=== PATIENT | male | born 1980 | race Hispanic/Latino ===

== ENCOUNTER 2017-01-27 19:44 | Emergency (ER) | payer MEDICAID, OTHER ==
[2017-01-27 20:02] VITALS: O2SAT 99
[2017-01-27] MEDS ORDERED: Sodium Chloride 0.9% 2,000 ML IV STA (20:15)
[2017-01-27 20:31] LABS: VENOUS BLOOD GAS BASE EXCESS 3.8 mmol/L (0.0-2.0); VENOUS BLOOD GAS PCO2 46 mmHg (40-60); VENOUS BLOOD PH 7.41 (7.32-7.43)
[2017-01-27 20:31] LABS: BASO # 0.1 K/uL (0.0-0.2); BASO % 0.8 % (0.0-2.0); EOS % 0.5 % (0.0-4.0); HEMATOCRIT 40.8 % (35.0-51.0); LYMPH # 1.8 K/uL (1.0-4.3); LYMPH % 19.1 % (20.0-40.0); MEAN CELL VOLUME 84.5 fl (80.0-94.0); MEAN CORPUSCULAR HEMOGLOBIN 27.5 pg (27.0-31.0); MEAN CORPUSCULAR HGB CONC 32.5 g/dL (33.0-37.0); MEAN PLATELET VOLUME 9.8 fl (7.2-11.7); MONO # 0.8 K/uL (0.0-0.8); NEUT # 6.9 K/uL (1.8-7.0); NEUT % 71.6 % (50.0-75.0); NRBC % 0.1 % (0.0-0.0); RED CELL DISTRIBUTION WIDTH 12.7 % (11.5-14.5); WHITE BLOOD COUNT 9.6 K/uL (4.8-10.8)
[2017-01-27 20:42] LABS: ALB/GLOB RATIO 1.4 (1.0-2.1); ALKALINE PHOSPHATASE 127 U/L (38-126); ALT/SGPT 39 U/L (21-72); AST/SGOT 24 U/L (17-59); BILIRUBIN,TOTAL 0.6 mg/dl (0.2-1.3); BLOOD UREA NITROGEN 20 mg/dl (9-20); CALCIUM 9.4 mg/dL (8.4-10.2); CARBON DIOXIDE 24 mmol/L (22-30); CHLORIDE 92 mmol/L (98-107); GFR AFRICAN-AMERICAN > 60; POTASSIUM 4.4 MMOL/L (3.6-5.0); SODIUM 131 mmol/l (132-148); TOTAL PROTEIN 7.6 G/DL (6.3-8.2)
--- NOTE | 2017-01-27 20:49 | ED PDOC ---
Lower Extremity Pain/Injury Time Seen by Provider: 01/27/17 20:06 Chief Complaint (Nursing): Lower Extremity Problem/Injury Chief Complaint (Provider): Left toe pain History Per: Patient History/Exam Limitations: no limitations Current Symptoms Are (Timing): Still Present Additional Complaint(s): Patient is a 37 year old male with a past medical history of diabetes presenting to the emergency department for swelling and pain in his left great toe. Patient was recently released from [place] [facility] where the onset of symptoms occurred, reporting that pus drained from the toe with accompanying swelling and pain. Denies fever, chills, chest pain, shortness of breath, abdominal pain , and also denies ever taking medication for diabetes. PCP: none provided. Past Medical History Reviewed: Historical Data, Nursing Documentation, Vital Signs Vital Signs: Last Vital Signs Temp 98 F 01/27/17 19:56 Pulse 106 H 01/27/17 19:56 Resp 18 01/27/17 19:56 BP 137/84 01/27/17 19:56 Pulse Ox 99 01/27/17 19:56 - Medical History PMH: Diabetes - Surgical History Surgical History: No Surg Hx - Family History Family History: States: Unknown Family Hx - Social History Current smoker - smoking cessation education provided: Yes Ex-Smoker (has not smoked in the last 12 months): No - Home Medications Home Medications: Ambulatory Orders Medication Instructions Recorded Naproxen [Naprosyn] 500 mg PO Q8 #30 tablet 01/28/17 metFORMIN [glucOPHAGE] 500 mg PO DAILY #30 tab 01/28/17 - Allergies Allergies/Adverse Reactions: Allergies Allergy/AdvReac Type Severity Reaction Status Date / Time No Known Allergies Allergy Verified 01/27/17 20:03 Review of Systems ROS Statement: Except As Marked, All Systems Reviewed And Found Negative Constitutional: Negative for: Fever, Chills Cardiovascular: Negative for: Chest Pain Respiratory: Negative for: Shortness of Breath Gastrointestinal: Negative for: Abdominal Pain Musculoskeletal: Positive for: Foot Pain (Left toe pain and swelling) Physical Exam - Reviewed Nursing Documentation Reviewed: Yes Vital Signs Reviewed: Yes - Physical Exam Appears: Positive for: Well, Non-toxic, No Acute Distress Head Exam: Positive for: ATRAUMATIC, NORMAL INSPECTION, NORMOCEPHALIC Skin: Positive for: Normal Color, Warm, Dry ENT: Positive for: Normal ENT Inspection Neck: Positive for: Normal, Painless ROM, Supple Cardiovascular/Chest: Positive for: Regular Rate, Rhythm. Negative for: Murmur Respiratory: Positive for: Normal Breath Sounds. Negative for: Accessory Muscle Use, Respiratory Distress Gastrointestinal/Abdominal: Positive for: Normal Exam, Soft. Negative for: Tenderness Extremity: Positive for: Normal ROM, Swelling (Left hallux swollen and erythematous with no breakdown or ulceration.). Negative for: Pedal Edema Neurologic/Psych: Positive for: Alert, Oriented - Laboratory Results Result Diagrams: 01/27/17 20:21 01/27/17 20:21 - ECG O2 Sat by Pulse Oximetry: 99 (RA) Pulse Ox Interpretation: Normal - Other Rad XR FOOT LEFT X-Ray: Interpreted by Me, Viewed By Me X-Ray Interpretation: No gas Medical Decision Making Medical Decision Making: Time: 20:47 Initial impression: Hyperglycemia vs. paronychia vs. osteomyelitis EKG Labs Chest X-Ray Normal Saline 2 L, 1 L/hr Urine Culture Stat Left foot X-ray Urinalysis Reevaluation 0000 XR FOOT LEFT: no gas (as read by provider) * Podiatry consult 0110 Patient is medically stable for discharge home and will follow up at the clinic. Return precautions given. Dx: hyperglycemia Scribe Attestation: Documented by Franchesca Marsh, acting as a scribe for Tarik Bae MD. Provider Scribe Attestation: All medical record entries made by the Scribe were at my direction and personally dictated by me. I have reviewed the chart and agree that the record accurately reflects my personal performance of the history, physical exam, medical decision making, and the department course for this patient. I have also personally directed, reviewed, and agree with the discharge instructions and disposition. Disposition - Clinical Impression Clinical Impression: Hyperglycemia, Toe swelling - Disposition Referrals: [facility] [Outside] [facility] [Outside] Disposition: Routine/Home Disposition Time: 01:10 Condition: STABLE Prescriptions: metFORMIN [glucOPHAGE] 500 mg PO DAILY #30 tab Naproxen [Naprosyn] 500 mg PO Q8 #30 tablet Instructions: Diabetic Hyperglycemia (ED) Forms: [employer] (Thai)
[2017-01-27 20:52] LABS: GLUCOSE,RANDOM 641 mg/dL (75-110)
[2017-01-27 20:53] LABS: RBC URINE 4 /hpf (0-3); URINE BACTERIA MOD (<OCC); URINE BILIRUBIN NEGATIVE (NEGATIVE); URINE BLOOD SMALL (NEGATIVE); URINE COLOR YELLOW (YELLOW); URINE GLUCOSE (UA) >=500 mg/dL (Normal); URINE KETONE NEGATIVE (NEGATIVE); URINE LEUKOCYTE ESTERASE MOD Leu/uL (Negative); URINE PROTEIN NEGATIVE (NEGATIVE); URINE UROBILINOGEN 0.2-1.0 mg/dL (0.2-1.0); WBC URINE 27 /hpf (0-5)
[2017-01-27] MEDS ORDERED: Insulin Regular 100 units/ml SC STA (21:11)
[2017-01-27] MEDS ORDERED: Insulin Regular 100 units/ml ONE (21:37)
--- NOTE | 2017-01-27 22:19 | CP.PCM.CON ---
History of Present Illness - History of Present Illness History of Present Illness: 37 year old uncontrolled DM male seen in the ED for left big toe pain. Patient stated that 4 days ago, he wore shoes that were too tight. He walked 6 hours in those shoes. He noticed drainage and swelling after taking the shoes off. Today , he states he felt the pain. Describes the pain as a throbbing pain, rating the pain 10/10 and being localized to the right big toe. Denies n/v/sob/cp/ chills or f. PMH: DM PSH: none Allergies: NKDA SH: admits to drinking, smoking, and occasional cocain drug use Meds: none FH: DM Review of Systems - Constitutional Constitutional: As Per HPI Past Patient History - Past Social History Smoking Status: Heavy Smoker > 10 Cigarettes Daily - ENDOCRINE/METABOLIC Hx Diabetes Mellitus Type 2: Yes - PSYCHIATRIC Hx Substance Use: Yes Meds Home Medications: Home Medication List Medication Instructions Recorded Confirmed Type Naproxen [Naprosyn] 500 mg PO Q8 #30 tablet 01/28/17 Rx metFORMIN [glucOPHAGE] 500 mg PO DAILY #30 tab 01/28/17 Rx Allergies/Adverse Reactions: Allergies Allergy/AdvReac Type Severity Reaction Status Date / Time No Known Allergies Allergy Verified 01/27/17 20:03 Physical Exam - Constitutional Appears: Well, Non-toxic, No Acute Distress - Extremities Exam Additional comments: Vasc: DP and PT 2/4 bilaterally, EXECUTIVE MARKETING ASSISTANT <3 seconds to digits x10, no edema noted to the LLE bilaterally, temperature gradient WNL Ortho: moderate pain elicited upon palpation of the nail plate, MM is 5/5 in all four compartments, patient able to wiggle toes Neuro: gross and protective sensation intact bilaterally Derm: erythema noted to the proximal nail folds of the left hallux, nail plate is detached 70% from the nail plate, <1 cc of serous sangious drainage expressed from the nail plate when palpating the proximal nail folds, no purulence, no streaking, very mild odor noted - Neurological Exam Neurological exam: Alert, Oriented x3 - Psychiatric Exam Psychiatric exam: Normal Affect, Normal Mood Results - Vital Signs Recent Vital Signs: Last Vital Signs Temp 98 F 01/27/17 19:56 Pulse 106 H 01/27/17 19:56 Resp 18 01/27/17 19:56 BP 137/84 01/27/17 19:56 Pulse Ox 99 01/27/17 21:05 - Labs Result Diagrams: 01/27/17 20:21 01/27/17 20:21 Labs: Laboratory Results - last 24 hr 01/27/17 01/27/17 01/27/17 20:21 20:21 20:21 WBC 9.6 RBC 4.83 Hgb 13.3 Hct 40.8 MCV 84.5 MCH 27.5 MCHC 32.5 L RDW 12.7 Plt Count 227 MPV 9.8 Neut % (Auto) 71.6 Lymph % (Auto) 19.1 L [place] % (Auto) 8.0 Eos % (Auto) 0.5 Baso % (Auto) 0.8 Neut # 6.9 Lymph # 1.8 [place] # 0.8 Eos # 0.0 Baso # 0.1 ESR 36 H pO2 VBG pH VBG pCO2 VBG HCO3 VBG Total CO2 VBG O2 Sat (Calc) VBG Base Excess VBG Potassium A-a O2 Difference Glucose Lactate FiO2 Crit Value Called To Crit Value Called By Crit Value Read Back Blood Gas Notified Time Sodium 131 L Potassium 4.4 Chloride 92 L Carbon Dioxide 24 Anion Gap 19 BUN 20 Creatinine 1.1 Est GFR ( Amer) > 60 Est GFR (Non-Af Amer) > 60 Random Glucose 641 H* Calcium 9.4 Total Bilirubin 0.6 Direct Bilirubin 0.5 H AST 24 ALT 39 Alkaline Phosphatase 127 H Total Protein 7.6 Albumin 4.4 Globulin 3.2 Albumin/Globulin Ratio 1.4 Venous Blood Potassium Urine Color Yellow Urine Clarity Slighty-cloudy Urine pH 6.0 Ur Specific [place] 1.031 H Urine Protein Negative Urine Glucose (UA) >=500 Urine Ketones Negative Urine Blood Small Urine Nitrate Positive H Urine Bilirubin Negative Urine Urobilinogen 0.2-1.0 Ur Leukocyte Esterase Mod Urine RBC (Auto) 4 H Urine Microscopic WBC 27 H Ur Squamous Epith Cells 1 Urine Bacteria Mod H 01/27/17 20:25 WBC RBC Hgb Hct MCV MCH MCHC RDW Plt Count MPV Neut % (Auto) Lymph % (Auto) [place] % (Auto) Eos % (Auto) Baso % (Auto) Neut # Lymph # [place] # Eos # Baso # ESR pO2 39 VBG pH 7.41 VBG pCO2 46 VBG HCO3 27.3 VBG Total CO2 30.6 H VBG O2 Sat (Calc) 78.3 H VBG Base Excess 3.8 H VBG Potassium 4.4 A-a O2 Difference 53.0 Glucose 693 H* Lactate 2.5 H FiO2 21.0 Crit Value Called To Tarik owens md Crit Value Called By 6088 Crit Value Read Back Y Blood Gas Notified Time 2030 Sodium 132.0 Potassium Chloride 92.0 L Carbon Dioxide Anion Gap BUN Creatinine Est GFR ( Amer) Est GFR (Non-Af Amer) Random Glucose Calcium Total Bilirubin Direct Bilirubin AST ALT Alkaline Phosphatase Total Protein Albumin Globulin Albumin/Globulin Ratio Venous Blood Potassium 4.4 Urine Color Urine Clarity Urine pH Ur Specific [place] Urine Protein Urine Glucose (UA) Urine Ketones Urine Blood Urine Nitrate Urine Bilirubin Urine Urobilinogen Ur Leukocyte Esterase Urine RBC (Auto) Urine Microscopic WBC Ur Squamous Epith Cells Urine Bacteria Assessment & Plan - Assessment and Plan (Free Text) Assessment: 37 year old uncontrolled DM with left hallux partially avulsed nail plate from nail bed secondary to trauma from tight shoes. Plan: Patient was seen in the ED Plan discussed in detail with attending Dr. Trinh Vitals, labs, charts reviewed (afebrile, no leukocytosis) X-rays reviewed by me- negative for gas emphysema and fracture Left hallux cleansed with saline mixed betadine, dressed with wet 2 dry betadine soaked gauze and cling, advised to keep dressing c/d/i, don't get wet Dispense surgical shoe, Instructed to wear surgical shoes, october WB Recommends ED Augmentin 875 BID for 10 days, told pt to take until completion F/U in podiatry clinic within a week Told will likely remove nail plate in clinic Explained signs of infection and told to go to ER if present Patient reports verbal understanding Thank you for the podiatry consult
[2017-01-28 00:22] VITALS: BP 125/80; PULSE 86; RESP 16; TEMP 98.1
[2017-01-28] MEDS ORDERED: Povidone Iodine Topical 10% Sol TOP ONE (00:27)
--- NOTE | 2017-01-28 08:16 | RAD ---
HISTORY: hyperglycemia COMPARISON: No prior. FINDINGS: LUNGS: The lungs are well inflated and clear. PLEURA: No significant pleural effusion identified, no pneumothorax apparent. CARDIOVASCULAR: Normal. OSSEOUS STRUCTURES: No significant abnormalities. VISUALIZED UPPER ABDOMEN: Normal. OTHER FINDINGS: None. IMPRESSION: No active pulmonary upper disease.
--- NOTE | 2017-01-28 09:17 | RAD ---
PROCEDURE: Radiographs of the left great toe. TECHNIQUE:: AP radiograph of the left foot, with oblique and lateral view of the left great toe. COMPARISON: None. FINDINGS: BONES: No evidence of acute displaced fracture nor dislocation osseous structures appear intact so far as can be seen. No definitive cortical destructive changes of. If symptoms persist cellulitis or osteomyelitis suspected clinically, consider followup MRI which is much more sensitive for detecting changes of cellulitis or early osteomyelitis compared to plain film imaging which cannot be completely excluded JOINTS: On this exam joint spaces relatively preserved. SOFT TISSUES: Normal. OTHER FINDINGS: None. IMPRESSION: No definitive evidence of displaced fracture nor dislocation. . No definitive radiographic evidence of osteomyelitis however early osteomyelitis not excluded. Consider followup MRI.
--- NOTE | 2017-01-29 09:36 | CARD ---
APPROVED REPORT EKG Measurement Heart [id number] <Conclusion> Normal sinus rhythm Normal ECG
== END 2017-01-28 01:43 | disposition home or self-care (01) ==
LOC: H.ER 19:44
DX: M79.89 Other specified soft tissue disorders (principal); E11.65 Type 2 diabetes mellitus with hyperglycemia
CPT/HCPCS: 71010; 73660; 80048; 80076; 81003; 82803; 82948; 85025; 85651; 86140; 87086; 87181; 93005; 96361; 96374; 99283; J1885; J7040

== ENCOUNTER 2017-10-06 02:17 | Emergency (ER) | payer MEDICAID ==
[2017-10-06 02:30] VITALS: PULSE 86; TEMP 98.2
--- NOTE | 2017-10-06 02:47 | ED PDOC ---
HPI: General Adult Time Seen by Provider: 10/06/17 02:27 Chief Complaint (Nursing): Medical Clearance Chief Complaint (Provider): clearance for incarceration History Per: Patient Additional Complaint(s): 37 y/o male history of diabetes here in police custody for medical and psychiatric clearance for incarceration. Patient states he has not taken medication for diabetes in months, does not remember what he used to take, just that it was a combination of insulin and pills in the longterm. Patient denies acute medical or psychiatric complaints. Past Medical History Reviewed: Historical Data, Nursing Documentation, Vital Signs Vital Signs: Last Vital Signs Temp 98.2 F 10/06/17 02:27 Pulse 86 10/06/17 02:27 Resp 17 10/06/17 02:27 BP 122/77 10/06/17 02:27 Pulse Ox 97 10/06/17 02:47 - Medical History PMH: Diabetes - Surgical History Surgical History: No Surg Hx - Family History Family History: States: Unknown Family Hx - Social History Current smoker - smoking cessation education provided: Yes Alcohol: > 2 Drinks/Day Drugs: Cocaine - Home Medications Home Medications: Ambulatory Orders Medication Instructions Recorded Naproxen [Naprosyn] 500 mg PO Q8 #30 tablet 01/28/17 metFORMIN [glucOPHAGE] 500 mg PO DAILY #30 tab 01/28/17 - Allergies Allergies/Adverse Reactions: Allergies Allergy/AdvReac Type Severity Reaction Status Date / Time No Known Allergies Allergy Verified 01/27/17 20:03 Review of Systems ROS Statement: Except As Marked, All Systems Reviewed And Found Negative Physical Exam - Reviewed Nursing Documentation Reviewed: Yes Vital Signs Reviewed: Yes - Physical Exam Appears: Positive for: Well, Non-toxic, No Acute Distress Head Exam: Positive for: ATRAUMATIC, NORMAL INSPECTION, NORMOCEPHALIC Skin: Positive for: Normal Color Eye Exam: Positive for: Normal appearance ENT: Positive for: Normal ENT Inspection Cardiovascular/Chest: Positive for: Regular Rate, Rhythm Respiratory: Positive for: Normal Breath Sounds Gastrointestinal/Abdominal: Positive for: Normal Exam Back: Positive for: Normal Inspection Extremity: Positive for: Normal ROM Neurologic/Psych: Positive for: Alert, Oriented - ECG O2 Sat by Pulse Oximetry: 97 - Progress ED Course And Treament: accucheck Patient evaluated by cement worker and cleared for discharge as per Dr. Gray Patient advised to f/up with PMD for proper management of his diabetes Return precautions given Disposition - Clinical Impression Clinical Impression: Hyperglycemia, Adjustment disorder - Patient ED Disposition Is Patient to be Admitted: No Counseled Patient/Family Regarding: Studies Performed, Diagnosis, Need For Followup - Disposition Referrals: [facility] [Outside] Disposition: Discharged/Transfer to Law Enforcement Disposition Time: 03:13 Condition: STABLE Additional Instructions: Patient medically and psychiatrically cleared for incarceration Instructions: Adjustment Disorder, Hyperglycemia, Adult Forms: [id number] (Mongolian)
[2017-10-06 03:18] VITALS: BP 122/78; RESP 16
[2017-10-06 03:30] VITALS: O2SAT 97
== END 2017-10-06 03:20 | disposition home or self-care (01) ==
LOC: H.ER 02:17
DX: E11.65 Type 2 diabetes mellitus with hyperglycemia (principal); F43.20 Adjustment disorder, unspecified; Z79.84 Long term (current) use of oral hypoglycemic drugs; F17.200 Nicotine dependence, unspecified, uncomplicated

== ENCOUNTER 2018-11-04 16:55 | Emergency (ER) | payer SELFPAY ==
[2018-11-04 17:00] VITALS: O2SAT 98
--- NOTE | 2018-11-04 17:59 | ED PDOC ---
HPI: SOB/CHF/COPD Time Seen by Provider: 11/04/18 17:17 Chief Complaint (Nursing): Medical Clearance Chief Complaint (Provider): Medical Clearance History Per: Patient History/Exam Limitations: no limitations Current Symptoms Are (Timing): Still Present Additional Complaint(s): 38 year old male with medical history of diabetes, arrives to the emergency department under [facility] custody for medical and psychiatric clearance. Patient admits to using alcohol and cocaine, subsequently, developed right-sided rib pain that exacerbates with inspiration. He denies any fever, chills, or cough. Past Medical History Reviewed: Historical Data, Nursing Documentation, Vital Signs Vital Signs: Last Vital Signs Temp 97.9 F 11/04/18 16:59 Pulse 108 H 11/04/18 16:59 Resp 17 11/04/18 16:59 BP 99/57 L 11/04/18 16:59 Pulse Ox 98 11/04/18 16:59 Primary Care Provider: FAMILY PROVIDER,NO - Medical History PMH: Diabetes Denies: Hepatitis, HIV, HTN, Seizures, Sexually Transmitted Disease - Family History Family History: States: Unknown Family Hx - Social History Current smoker - smoking cessation education provided: No Alcohol: Occasional Drugs: Cocaine - Home Medications Home Medications: Ambulatory Orders Medication Instructions Recorded Naproxen [Naprosyn] 500 mg PO Q8 #30 tablet 01/28/17 metFORMIN [glucOPHAGE] 500 mg PO DAILY #30 tab 01/28/17 - Allergies Allergies/Adverse Reactions: Allergies Allergy/AdvReac Type Severity Reaction Status Date / Time No Known Allergies Allergy Verified 01/27/17 20:03 Review of Systems ROS Statement: Except As Marked, All Systems Reviewed And Found Negative Constitutional: Negative for: Fever, Chills Cardiovascular: Positive for: Chest Pain (right-sided ribs) Respiratory: Negative for: Cough Physical Exam - Reviewed Nursing Documentation Reviewed: Yes Vital Signs Reviewed: Yes - Physical Exam Appears: Positive for: No Acute Distress Head Exam: Positive for: ATRAUMATIC, NORMAL INSPECTION, NORMOCEPHALIC Skin: Positive for: Normal Color Eye Exam: Positive for: Normal appearance ENT: Positive for: Normal ENT Inspection Neck: Positive for: Normal Cardiovascular/Chest: Positive for: Regular Rate, Rhythm, Chest Non Tender. Negative for: Murmur, Bradycardia, Tachycardia, Other (ecchymosis or trauma to torso) Respiratory: Positive for: Normal Breath Sounds. Negative for: Accessory Muscle Use, Wheezing, Respiratory Distress Gastrointestinal/Abdominal: Positive for: Normal Exam, Soft. Negative for: Tenderness Extremity: Positive for: Normal ROM (upper/lower) Neurological/Psych: Positive for: Awake, Alert, Normal Tone, Symmetric/Intact Strength, Oriented. Negative for: Motor/Sensory Deficits - Laboratory Results Result Diagrams: 11/04/18 18:20 11/04/18 18:20 - ECG O2 Sat by Pulse Oximetry: 98 (RA) Pulse Ox Interpretation: Normal Medical Decision Making Medical Decision Making: Time: 1739 Initial Plan: work up for medical and psychiatric clearance under police custody with additional complaint of right-sided rib pain. * Labs * Crisis eval * XR right ribs and chest * Tylenol PO Time: 1837 --XR right ribs/chest FINDINGS: RIGHT RIBS: No fracture or focal lesion visualized. LUNGS: Clear. PLEURA: No pneumothorax or pleural fluid. CARDIOVASCULAR: Normal cardiac size. No pulmonary vascular congestion. No aortic atherosclerotic calcification present OTHER FINDINGS: None. IMPRESSION: Unremarkable radiographs of the chest and right ribs. No right rib fracture. 1849 Pt with improved vitals, normal CXR/Rib series, and cleared by psychiatry (Dr. Gray) with a diagnosis of Adjustment DO. Pain improved with Tylenol. Discharged to police custody. Scribe Attestation: Documented by Caroline Lechuga, acting as a scribe for Kaylin Oreilly MD. Provider Scribe Attestation: All medical record entries made by the Scribe were at my direction and personally dictated by me. I have reviewed the chart and agree that the record accurately reflects my personal performance of the history, physical exam, medical decision making, and the department course for this patient. I have also personally directed, reviewed, and agree with the discharge instructions and disposition. Disposition - Clinical Impression Clinical Impression: Rib pain - Disposition Disposition: Discharged/Transfer to Law Enforcement Disposition Time: 18:50 Condition: IMPROVED Additional Instructions: Take Motrin or Tylenol as needed for pain. Mr. Ramírez is medically and psychiatrically cleared for discharge to police custody. Instructions: General (DC) Forms: [employer] (Italian) Print Language: HONDURAN
--- NOTE | 2018-11-04 18:41 | RAD ---
Date of service: 11/04/2018 PROCEDURE: Radiographs of the Chest and Right Ribs. HISTORY: right sided rib pain COMPARISON: None available. TECHNIQUE: Frontal radiograph of the chest and multiple oblique radiographs of the right ribs were obtained. 4 views obtained. FINDINGS: RIGHT RIBS: No fracture or focal lesion visualized. LUNGS: Clear. PLEURA: No pneumothorax or pleural fluid. CARDIOVASCULAR: Normal cardiac size. No pulmonary vascular congestion. No aortic atherosclerotic calcification present OTHER FINDINGS: None. IMPRESSION: Unremarkable radiographs of the chest and right ribs. No right rib fracture.
[2018-11-04 19:00] LABS: BASO % 0.2 % (0.0-2.0); EOS % 0.1 % (0.0-4.0); HEMOGLOBIN 14.5 g/dL (12.0-18.0); LYMPH # 0.9 K/uL (1.0-4.3); MEAN CELL VOLUME 89.2 fl (80.0-94.0); MEAN CORPUSCULAR HEMOGLOBIN 29.8 pg (27.0-31.0); MEAN CORPUSCULAR HGB CONC 33.5 g/dL (33.0-37.0); MEAN PLATELET VOLUME 9.4 fl (7.2-11.7); MONO # 0.8 K/uL (0.0-0.8); MONO % 7.9 % (0.0-10.0); NEUT # 8.9 K/uL (1.8-7.0); NEUT % 83.8 % (50.0-75.0); PLATELET COUNT 195 K/uL (130-400); RBC 4.85 Mil/uL (4.40-5.90); RED CELL DISTRIBUTION WIDTH 14.5 % (11.5-14.5); WHITE BLOOD COUNT 10.6 K/uL (4.8-10.8)
[2018-11-04 19:10] LABS: BLOOD UREA NITROGEN 14 mg/dl (9-20); CALCIUM 9.6 mg/dL (8.4-10.2); GFR NON-AFRICAN AMERICAN > 60
[2018-11-04 19:28] LABS: LYMPHOCYTE 7 % (20-50); MONOCYTE 8 % (0-10); NEUTROPHIL 85 % (42-75); PLATELET ESTIMATE NORMAL (NORMAL); TOTAL CELLS COUNTED 100
[2018-11-04 19:38] VITALS: BP 140/75; PULSE 96; RESP 18; TEMP 98.1
== END 2018-11-04 19:32 | disposition home or self-care (01) ==
LOC: H.ER 16:55
DX: R07.81 Pleurodynia (principal); J44.9 Chronic obstructive pulmonary disease, unspecified; E11.9 Type 2 diabetes mellitus without complications; Z79.84 Long term (current) use of oral hypoglycemic drugs
CPT/HCPCS: 71101; 80048; 85025; 99282; G0480